=== PATIENT | female | born 1955 | race Caucasian/White ===

== ENCOUNTER 2019-04-01 18:50 | Inpatient (IN) | payer MEDICARE, OTHER ==
[2019-04-01 19:32] LABS: BASOPHILS % (AUTO) 0.3 %; EOSINOPHILS % (AUTO) 0.1 %; HGB - HEMOGLOBIN 15.2 g/dL (12.0-16.0); LYMPHOCYTES # (AUTO) 1.1 10^3/uL (1.5-3.5); LYMPHOCYTES % (AUTO) 8.9 %; MEAN CORPUSCULAR HEMOGLOBIN 32.3 pg (27.0-31.0); MEAN CORPUSCULAR HGB CONC 34.3 g/dL (32.0-36.0); MEAN CORPUSCULAR VOLUME 94.1 fL (81.0-99.0); MONOCYTES % (AUTO) 8.5 %; NEUTROPHILS # (AUTO) 9.8 10^3/uL (1.5-6.6); NEUTROPHILS % (AUTO) 81.5 %; PLT - PLATELET COUNT 244 10^3/uL (130-450); RED BLOOD COUNT 4.71 10^6/uL (4.20-5.40)
[2019-04-01] MEDS ORDERED: cefTRIAXone 1 GM VIAL IVP STA (19:40)
[2019-04-01 19:41] LABS: BILIRUBIN,URINE NEGATIVE (NEGATIVE); GLUCOSE, URINE (UA) NEGATIVE (NEGATIVE); KETONES,URINE (UA) TRACE mg/dL (NEGATIVE); LEUKOCYTE ESTERASE, URINE SMALL (NEGATIVE); NITRITE,URINE POSITIVE (NEGATIVE); OCCULT BLOOD,URINE NEGATIVE (NEGATIVE); PH,URINE 5.5 PH (5.0-7.5); PROTEIN,URINE 100 mg/dL (NEGATIVE); UROBILINOGEN,URINE 4 E.U./dL (NORMAL)
[2019-04-01 19:42] LABS: ALBUMIN 3.8 g/dL (3.2-5.5); ALBUMIN/GLOBULIN RATIO 0.8 (1.0-2.2); BILIRUBIN,TOTAL 0.9 mg/dL (0.2-1.0); CALCIUM 9.6 mg/dL (8.5-10.3); TOTAL PROTEIN 8.5 g/dL (6.7-8.2)
--- NOTE | 2019-04-01 19:42 | ED Physician Documentation ---
History of Present Illness - Stated complaint Stated Complaint: LETHARGIC/FEVER/UNBALANCED - Chief complaint Chief Complaint: Fever - History obtained from History obtained from: Patient - History of Present Illness Timing: Other (63-year-old woman with history of multiple sclerosis presents with 2 days of fatigue and fever. She has had a couple of UTIs over the last couple of months and does have a history of obstructive renal colic. She does not complain of any back pain. She is had mild right upper extremity pain for 2 days and chronic left hip pain. No cough, shortness of breath, or sore throat.) Review of Systems Ten Systems: 10 systems reviewed and negative Constitutional: reports: Fever, Chills, Fatigue Throat: denies: Sore throat Cardiac: denies: Chest pain / pressure, Palpitations Respiratory: denies: Dyspnea, Cough GI: denies: Abdominal Pain, Nausea, Vomiting : denies: Dysuria PD PAST MEDICAL HISTORY - Past Medical History Past Medical History: Yes Neuro: Multiple sclerosis Endocrine/Autoimmune: Type 2 diabetes - Allergies Allergies/Adverse Reactions: Allergies Allergy/AdvReac Type Severity Reaction Status Date / Time Sulfa (Sulfonamide Allergy Hives Verified 04/01/19 19:07 Antibiotics) acetaminophen [From Vicodin] AdvReac Mild Anxiety Verified 04/01/19 19:08 hydrocodone [From Vicodin] AdvReac Mild Anxiety Verified 04/01/19 19:08 - Social History Does the pt smoke?: No Smoking Status: Never smoker Does the pt drink ETOH?: No Does the pt have substance abuse?: No - Immunizations Immunizations are current?: Yes - POLST Patient has POLST: No PD ED PE NORMAL - Vitals Vital signs reviewed: Yes - General General: Alert and oriented X 3, Other (She has the classic smell of a UTI about her.) - HEENT HEENT: PERRL, EOMI - Neck Neck: Supple, no meningeal sign, No bony TTP - Cardiac Cardiac: RRR, No murmur - Respiratory Respiratory: No respiratory distress, Clear bilaterally - Abdomen Abdomen: Normal bowel sounds, Soft, Non tender - Back Back: No CVA TTP, No spinal TTP - Derm Derm: Normal color, Warm and dry - Extremities Extremities: No edema, No calf tenderness / cord - Neuro Neuro: Alert and oriented X 3, Normal speech - Psych Psych: Normal mood, Normal affect Results - Vitals Vitals: Vital Signs - 24 hr 04/01/19 04/01/19 04/01/19 18:59 20:03 20:31 Temperature 39.2 C H Heart Rate 102 H 80 90 Respiratory 20 14 14 Rate Blood Pressure 160/82 H 118/68 120/70 O2 Saturation 96 92 98 Oxygen O2 Source Room air - Labs Labs: Laboratory Tests 04/01/19 04/01/19 04/01/19 19:01 19:18 19:18 WBC 12.0 H RBC 4.71 Hgb 15.2 Hct 44.3 MCV 94.1 MCH 32.3 H MCHC 34.3 RDW 13.0 Plt Count 244 MPV 9.0 Neut # (Auto) 9.8 H Lymph # (Auto) 1.1 L [place] # (Auto) 1.0 Eos # (Auto) 0.0 Baso # (Auto) 0.0 Absolute Nucleated RBC 0.00 Nucleated RBC % 0.0 Sodium 133 L Potassium 4.7 Chloride 95 L Carbon Dioxide 25 Anion Gap 13.0 BUN 25 H Creatinine 1.0 Estimated GFR (MDRD) 56 L Glucose 206 H POC Whole Bld Glucose 216 H Lactic Acid Calcium 9.6 Total Bilirubin 0.9 AST 28 ALT 28 Alkaline Phosphatase 54 Total Protein 8.5 H Albumin 3.8 Globulin 4.7 H Albumin/Globulin Ratio 0.8 L Lipase 20 L Urine Color Urine Clarity Urine pH Ur Specific [place] Urine Protein Urine Glucose (UA) Urine Ketones Urine Occult Blood Urine Nitrite Urine Bilirubin Urine Urobilinogen Ur Leukocyte Esterase Urine RBC Urine WBC Ur Squamous Epith Cells Urine Bacteria Ur Microscopic Review Urine Culture Comments 04/01/19 04/01/19 19:22 19:30 WBC RBC Hgb Hct MCV MCH MCHC RDW Plt Count MPV Neut # (Auto) Lymph # (Auto) [place] # (Auto) Eos # (Auto) Baso # (Auto) Absolute Nucleated RBC Nucleated RBC % Sodium Potassium Chloride Carbon Dioxide Anion Gap BUN Creatinine Estimated GFR (MDRD) Glucose POC Whole Bld Glucose Lactic Acid 2.1 Calcium Total Bilirubin AST ALT Alkaline Phosphatase Total Protein Albumin Globulin Albumin/Globulin Ratio Lipase Urine Color YELLOW Urine Clarity HAZY Urine pH 5.5 Ur Specific [place] 1.025 Urine Protein 100 H Urine Glucose (UA) NEGATIVE Urine Ketones TRACE Urine Occult Blood NEGATIVE Urine Nitrite POSITIVE H Urine Bilirubin NEGATIVE Urine Urobilinogen 4 H Ur Leukocyte Esterase SMALL H Urine RBC None Seen Urine WBC 6-10 H Ur Squamous Epith Cells FEW Squamous Urine Bacteria Many H Ur Microscopic Review INDICATED Urine Culture Comments INDICATED - Rads (name of study) CT KUB Radiology: EMP read contemporaneously (Multiple scars in left kidney, left midpole 6 mm renal calculus versus calcification. No obstructing stones or evidence of obstruction. She does have gas in the bladder. Fat-containing right inguinal hernia. Minimal free fluid in the posterior cul-de-sac, fatty liver.) PD MEDICAL DECISION MAKING - ED course ED course: 63-year-old woman with multiple sclerosis presents with fever and fatigue and being off balance. She was tachycardic and febrile on arrival. She smells of UTI but her Examination and history was otherwise without signs or symptoms of other infections. Given the history of renal colic she was sent for CT. 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 Confirmed with the patient that she does not self cath. She was administered Rocephin and gent after blood and urine cultures. Spoke with Dr. Butler for admission at 8:49 PM. Departure - Departure Disposition: 01 Home, Self Care Clinical Impression: Emphysematous cystitis, Multiple sclerosis, Septicemia Condition: Serious
[2019-04-01 19:44] LABS: CLARITY,URINE HAZY (CLEAR)
[2019-04-01 19:50] LABS: RBC,URINE None Seen /HPF (0-5)
[2019-04-01 19:51] LABS: BACTERIA,URINE Many /HPF (None Seen); SQUAMOUS EPITHELIAL CELL,UR FEW Squamous (<= Few)
[2019-04-01] MEDS ORDERED: GENTAMICIN IV STA (20:03)
[2019-04-01] MEDS ORDERED: SODIUM CHLORIDE 0.9% IV STA (20:03)
[2019-04-01] MEDS ORDERED: SODIUM CHLORIDE 0.9% 1,000 ML IV ONE (20:05)
--- NOTE | 2019-04-01 20:34 | CT Report ---
Reason: UTI, poss ureteral stone Procedure Date: 04/01/2019 Accession Number: [id number] / [id number] Procedure: CT - Abdomen/Pelvis WO CPT Code: FULL RESULT: EXAM: CT ABDOMEN AND PELVIS (CT KUB) EXAM DATE: 04/01/2019 07:56 PM. CLINICAL HISTORY: Urinary tract infection, possible ureteral stone. COMPARISONS: None. TECHNIQUE: Routine axial helical CT imaging was performed through the abdomen and pelvis without IV contrast. Reconstructions: Coronal and sagittal. In accordance with CT protocol optimization, one or more of the following dose reduction techniques were utilized for this exam: automated exposure control, adjustment of mA and/or KV based on patient size, or use of iterative reconstructive technique. FINDINGS: Lung Bases: Mild bibasilar atelectasis or scarring. Liver: Fatty liver. Gallbladder: Status post cholecystectomy. Bile ducts: No bile duct dilatation. Pancreas: Unremarkable. Spleen: Unremarkable. Adrenals: Unremarkable. Kidneys: Left lateral exophytic renal cyst measuring 3.5 cm. Multiple scars left kidney. Left lateral parenchymal calcification. Left mid pole 6 mm calcification, could represent renal calculus versus parenchymal calcification. Heterogeneous hyperdensities seen at the upper pole right kidney extending into Morison's pouch. Small right parenchymal calcification. No hydronephrosis. No hydroureter or ureteral calculi. No perinephric stranding. Bowel: No acute bowel findings are seen. The appendix is not definitely seen. No free air. Minimal free fluid seen in the posterior cul-de-sac. Pelvis: There is a moderate amount of gas in the bladder. No definite bladder wall thickening. No adjacent stranding. Fat-containing right inguinal hernia with a neck of 2 cm. Vasculature: No acute findings. Bones: No acute bone findings. IMPRESSION: 1. Multiple scars in the left kidney. A left midpole 6 mm renal calculus versus parenchymal calcification. No hydronephrosis or hydroureter. No ureteral calculi. No perinephric stranding. Moderate amount of gas in the bladder. Has the patient recently been catheterized?. No definite bladder wall thickening or adjacent stranding. 2. Fat-containing right inguinal hernia. 3. Minimal free fluid in the posterior cul-de-sac. 4. Fatty liver. 5. See above. RADIA
[2019-04-01] MEDS ORDERED: SODIUM CHLORIDE FLUSH 0.9% 10 ML SYRINGE IVP PRN (20:48)
[2019-04-01] MEDS: HEPARIN 5,000 UNIT/ML VIAL SUBQ SCH (21:48)
[2019-04-01] MEDS: ACETAMINOPHEN 325 MG TABLET PO PRN (21:50)
[2019-04-01] MEDS: LACTATED RINGERS 1,000 ML IV SCH (21:53)
--- NOTE | 2019-04-01 21:53 | HISTORY & PHYSICAL EXAMINATION ---
Chief Complaint - Chief Complaint Chief Complaint: Fever History of Present Illness - Admitted From Admitted From:: Home - History Obtained From Records Reviewed: Yes History obtained from: Patient, Family - History of Present Illness HPI Comment/Other: This is a very pleasant 63 year old female with a past medical history significant for multiple sclerosis, hypertension, diabetes, and JULIA who presents from home after she was found to have a fever today. The patient reports feeling very fatigued these past two days so her daughter measured her temperature as the last time she was this fatigue, she had a urinary tract infection. Her temperature was found to be >102 Fahrenheit and so she seeked medical attention. She reports that she does not feel febrile and denies chills, dysuria, urgency, frequency, cough, nausea, vomiting, and diarrhea. She reports a history of UTI's in the past with most recent being earlier this month for which she was treated with 5 day course of an antibiotic which she cannot recall. She has had poor oral intake over the past few days. She also reports feeling weak and that her balance is a little off over this period of time. Today she got a cane to help her ambulate when normally she ambulates on her own. She reports a headache at this time. She also complains of numbness which is chronic secondary to her MS. In the ER, she was found to be febrile, tachycardic but with a normal blood pressure. Her labs were signficant for a white count of 12 with a left shift, sodium of 133, and urinalysis revealed pyuria, nitritis, leuk esterase, and bacteria. She will be admitted for further management. I did speak with the patient regarding goals of care. She does not have a POLST form with her but she states she would want CPR if necessary. History - Past Medical History Cardiovascular: reports: Hypertension Respiratory: reports: Sleep apnea, CPAP use Neuro: reports: Multiple sclerosis Endocrine/Autoimmune: reports: Type 2 diabetes : reports: Kidney stones MRSA Hx?: No - Past Surgical History /AUTHOR: reports: Other (Nephrostomy tubes) - Family & Social History Family History Comment/Other: She reports a family history of diabetes and hypertension. She has a cousin with multiple sclerosis. Her daughter was recently diagnosed with cancer. Living arrangement: At home Living Situation: With family Social History Notes: She lives in [place] but is spending time with her daughter here on [facility] after she was recently diagnosed with cancer. She does not smoke, drink alcohol or use illict drugs. - Substance History Use: Uses substance without health or social issues: NONE - POLST Patient has POLST: No POLST Status: Full Code Meds/Allgy - Home Medications Home Medications: Ambulatory Orders Medication Instructions Recorded Confirmed Insulin Glargine [Lantus Solostar] unit 04/01/19 Insulin Lispro [Humalog] 04/01/19 Metoprolol Tartrate 04/01/19 glyBURIDE [Glyburide] 04/01/19 metFORMIN [Glucophage] 04/01/19 traMADol [Ultram] 04/01/19 - Allergies Allergies/Adverse Reactions: Allergies Allergy/AdvReac Type Severity Reaction Status Date / Time Sulfa (Sulfonamide Allergy Hives Verified 04/01/19 19:07 Antibiotics) hydrocodone [From Vicodin] AdvReac Mild Anxiety Verified 04/01/19 19:08 Review of Systems - Constitutional Constitutional: reports: Fatigue, Weakness, Poor appetite. denies: Fever, Chills - Cardiovascular Cariovascular: denies: Chest pain, Lightheadedness, Exertional dyspnea, Decr. exercise tolerance - Respiratory Respiratory: denies: Cough, SOB at rest, SOB with exertion - Gastrointestinal Gastrointestinal: denies: Abdominal pain, Constipation, Diarrhea, Nausea, Vomiting - Genitourinary Genitourinary: denies: Dysuria, Frequency, Urgency - Neurological Neurological: reports: General weakness, Headache, Numbness. denies: Focal weakness - All Other Systems All Other Systems: reports: Reviewed and negative Prior Level of Functionality: Independent with ADL's. Exam - Vital Signs Reviewed Vital Signs: Yes Vital Signs: Vital Signs x48h Temp Pulse Pulse Resp BP BP Pulse Ox 04/01/19 21:19 37.0 C 84 20 129/71 93 04/01/19 20:31 90 14 120/70 98 04/01/19 20:03 80 14 118/68 92 04/01/19 18:59 39.2 C H 102 H 20 160/82 H 96 - Physical Exam General Appearance: positive: No acute distress, Alert Eyes Bilateral: positive: Normal inspection ENT: positive: Dry mucous membranes. negative: No signs of dehydration Neck: positive: Nml inspection Respiratory: positive: No respiratory distress. negative: Wheezes, Rales, Rhonchi Cardiovascular: positive: Regular rate & rhythm, No murmur. negative: Tachycardia, Bradycardia, Systolic murmur Abdomen: positive: Non-tender. negative: Tenderness, Guarding, Rebound Skin: positive: Color nml, No rash, Warm, Dry Neurologic/Psychiatric: positive: Oriented x3, Motor nml, Sensation nml, Other (Finger to nose test is abnormal in the left upper extremity which is baseline per patient. Finger to nose test normal in right upper extremity.). negative: Disoriented to person, Disoriented to place, Disoriented to time Sepsis Event Note (H) - Evaluation Current Stage of Sepsis: Sepsis Possible source of Sepsis: positive: Genitourinary - Sepsis Criteria Sepsis Criteria: Recorded Temperature greater than 38.3C or Less than 36C, Recorded Heart Rate greater than 90 bpm, WBC count greater than 12,000 or less than 4000 Conclusion/Plan - Problem List (1) Sepsis secondary to UTI Conclusion/Plan: Presented with fevers, tachycardia, and leukocytosis. Blood pressure is stable and no lactic acidosis or renal dysfunction. Urinalysis consistent with infection. No other obvious source of infection. - Cefepime IV - IV Hydration - Blood and urine cultures (2) Emphysematous cystitis Conclusion/Plan: Her urinalysis is consistent with infection and CT of the abdomen/pelvis concerning for gas in the bladder in a patient who has not had recent c atheterization. Has had prior UTI's with most recent being earlier this month so there is concern for resistant organsims. - Cefepime IV for broad spectrum coverage given her history of prior UTI and concern for resistance - Follow up urine culture (3) Multiple sclerosis Conclusion/Plan: She has a history of multiple sclerosis for which she takes interferon. She has numbness from head to toe at baseline. Complaining of decreased balance over last two days which I suspect is secondary to her UTI rather than exacerbation of her MS. - Resume Interferon on outpatient basis - PT/OT - If balance issues persist despite resolution of UTI then will obtain CT of the head (4) Hyponatremia Conclusion/Plan: Likely hypovolemic hyponatremia secondary to poor oral intake. Sodium 133 on admission. - Should improve with IV hydration - Monitor BMP (5) Type 2 diabetes mellitus with insulin therapy Conclusion/Plan: She has history of diabetes for which she takes metformin, glyburide, lantus and humalog. Reports last A1c is 11%. Blood glucose <200. - Continue Lantus - Start Novolog with meals - CC diet (6) Hypertension Conclusion/Plan: She reports a history of hypertension for which she takes Metoprolol. Currently normotensive. - Will home Metoprolol in setting of sepsis (7) Chronic headaches Conclusion/Plan: She reports a history of chronic headaches for which she takes Metoprolol and Tramadol. Currently complaining of a headache. - Hold Metoprolol due to sepsis - Resume Tramadol - Start Tylenol PRN - Lab Results Fish Bones: 04/01/19 19:18 04/01/19 19:18 - Diagnostic Imaging Results Diagnostic Imaging Results: positive: Final report reviewed Core Measures - Anticipated LOS I expect patient to be DC'd or transferred within 96 hours.: Yes - Issues Hospital Issues and Management Plan: Sepsis 2/2 UTI requiring IV antibiotics. - DVT/VTE - Prophylaxis VTE/DVT Device ordered at admit?: Yes VTE/DVT Prophylaxis med ordered at admit?: Yes
[2019-04-01] MEDS: traMADol 50 MG TABLET PO PRN (23:49)
[2019-04-02] MEDS: SODIUM CHLORIDE FLUSH 0.9% 10 ML SYRINGE IVP SCH ×3 (04:25→16:38)
[2019-04-02 05:35] LABS: BASOPHILS % (AUTO) 0.2 %; EOSINOPHILS % (AUTO) 0.3 %; HGB - HEMOGLOBIN 12.9 g/dL (12.0-16.0); LYMPHOCYTES % (AUTO) 11.1 %; MEAN CORPUSCULAR HEMOGLOBIN 31.3 pg (27.0-31.0); MEAN CORPUSCULAR HGB CONC 33.2 g/dL (32.0-36.0); MEAN CORPUSCULAR VOLUME 94.2 fL (81.0-99.0); MEAN PLATELET VOLUME 9.2 fL (7.9-10.8); MONOCYTES # (AUTO) 0.9 10^3/uL (0.0-1.0); MONOCYTES % (AUTO) 9.7 %; NEUTROPHILS # (AUTO) 6.8 10^3/uL (1.5-6.6); PLT - PLATELET COUNT 196 10^3/uL (130-450); RED BLOOD COUNT 4.12 10^6/uL (4.20-5.40); RED CELL DISTRIBUTION WIDTH 13.2 % (12.0-15.0); WHITE BLOOD COUNT 8.8 x10^3/uL (4.8-10.8)
[2019-04-02 05:49] LABS: CALCIUM 8.7 mg/dL (8.5-10.3); CREATININE 0.9 mg/dL (0.4-1.0); MAGNESIUM 1.8 mg/dL (1.7-2.8); PHOSPHORUS 3.9 mg/dL (2.5-4.6)
[2019-04-02] MEDS: ACETAMINOPHEN 325 MG TABLET PO PRN ×3 (05:58→22:23)
[2019-04-02] MEDS: LACTATED RINGERS 1,000 ML IV SCH ×2 (08:09→18:28)
[2019-04-02] MEDS: CEFEPIME 2 GM in SODIUM CHLORIDE 0.9% MINIBAG 100 ML IV SCH ×2 (08:10→22:10)
[2019-04-02] MEDS: INSULIN GLARGINE 300 UNIT/3 ML PEN SUBQ SCH (08:17)
[2019-04-02] MEDS: INSULIN ASPART 300 UNIT/3 ML PEN SUBQ SCH ×7 (08:19→22:09)
[2019-04-02] MEDS: HEPARIN 5,000 UNIT/ML VIAL SUBQ SCH ×2 (08:23→22:08)
[2019-04-02] MEDS: POLYETHYLENE GLYCOL 3350 17 GM PACKET PO SCH (08:30)
[2019-04-02] MEDS ORDERED: cefTRIAXone 1 GM in SODIUM CHLORIDE 0.9% MINIBAG 100 ML IV SCH (09:00)
[2019-04-02] MEDS: traMADol 50 MG TABLET PO PRN (11:49)
--- NOTE | 2019-04-02 13:46 | PROVIDER PROGRESS NOTE ---
Assessment/Plan - Problem List (1) Sepsis secondary to UTI Assessment/Plan: Tachycardia is slowly improving, WBC has improved but she still had a fever this morning. (Tachy could also be from holding her Metoprolol, due to soft BPs) Continue iv hydration and treating the UTI. Await urine culture results, which is already growing a gram neg Robinson. (2) Emphysematous cystitis Assessment/Plan: Continue empiric iv Cefepime, which was chosen over iv ceftriaxone, since she has had multiple previous UTIs and may have resistant bacteria. I discussed the details of her last recent treatment for UTI and whether she had a Langston: No Langston and No receent hospitalization elsewhere. Will obtain a consult with General Surgery regarding air in urinary bladder, due to concern for perforation or bowel to bladder fistula, given the abdominal distension. (3) Abdominal distension, gaseous Assessment/Plan: This is of concern, even asymptomatic, since bowel gas could be related to the bladder air, if there is a communication. She does not have a tense abdomen or appear in distress. She also says this is the normal size of her abdomen. Will request surgery consult. I informed the patient, and daughter at bedside, with her 4 children, of the plan. (4) Multiple sclerosis Assessment/Plan: PT was ordered. (5) Type 2 diabetes mellitus with insulin therapy Assessment/Plan: Continue cc diet, Insulin and ss coverage. Her oral meds are on hild, for ease of managemen. (6) Hyponatremia Assessment/Plan: Resolved. - Current Meds Current Meds: Current Medications Generic Name Dose Route Start Last Admin Trade Name Freq PRN Reason Stop Dose Admin Acetaminophen 650 mg 04/01/19 20:48 04/02/19 05:58 Tylenol PO 650 mg Q6HR PRN Administration Pain 1 to 4 Heparin Sodium (Porcine) 5,000 unit 04/01/19 21:00 04/02/19 08:23 SUBQ 5,000 unit BID DANIELA Administration Lactated Ringer's 1,000 mls @ 100 mls/hr 04/01/19 21:00 04/02/19 08:09 Lr IV 100 mls/hr .Q10H DANIELA Administration Cefepime HCl 2 gm/ Sodium 100 mls @ 200 mls/hr 04/02/19 09:00 04/02/19 09:11 Chloride IV Infused BID DANIELA Infusion Insulin Aspart 16 unit 04/02/19 08:00 04/02/19 11:50 Novolog SUBQ 16 unit TIDWM [facility] Administration Protocol Insulin Aspart 1 - 5 unit 04/02/19 08:00 04/02/19 11:50 Novolog SUBQ 2 unit 0800,1200,1700,2100 DANIELA Administration Protocol Insulin Glargine 72 unit 04/02/19 08:00 04/02/19 08:17 Lantus Solostar SUBQ 72 unit QDBREAKFAST DANIELA Administration Polyethylene Glycol 17 gm 04/02/19 09:00 04/02/19 08:30 Miralax PO Not Given DAILY DANIELA Sodium Chloride 10 ml 04/02/19 01:00 04/02/19 08:29 Normal Saline Flush 0.9% IVP 10 ml 0100,0900,1700 DANIELA Administration Tramadol HCl 50 mg 04/01/19 22:40 04/02/19 11:49 Ultram PO 50 mg Q6HR PRN Administration PAIN - Lab Result Fish Bone Diagrams: 04/02/19 05:10 04/02/19 05:10 Subjective - Subjective Patient Reports: Feeling Better, No Complaints Objective Vital Signs: Vital Signs - 24 hr 04/01/19 04/01/19 04/01/19 18:59 20:03 20:31 Temperature 39.2 C H Heart Rate 102 H 80 90 Heart Rate [ Activity] Heart Rate [ Monitoring electrodes] Respiratory 20 14 14 Rate Respiratory Rate [With Activity] Blood Pressure 160/82 H 118/68 120/70 Blood Pressure [Activity] Blood Pressure [Right Brachial artery] O2 Saturation 96 92 98 O2 Saturation [ With Activity] 04/01/19 04/01/19 04/02/19 21:19 23:38 05:48 Temperature 37.0 C 37.3 C 38.7 C H Heart Rate Heart Rate [ Activity] Heart Rate [ 84 83 99 Monitoring electrodes] Respiratory 20 20 16 Rate Respiratory Rate [With Activity] Blood Pressure Blood Pressure [Activity] Blood Pressure 129/71 120/70 145/78 H [Right Brachial artery] O2 Saturation 93 91 L 91 L O2 Saturation [ With Activity] 04/02/19 04/02/19 04/02/19 06:00 06:16 07:44 Temperature 38.7 C H 37.3 C Heart Rate 99 Heart Rate [ Activity] Heart Rate [ 82 Monitoring electrodes] Respiratory 16 18 Rate Respiratory Rate [With Activity] Blood Pressure Blood Pressure [Activity] Blood Pressure 131/69 H [Right Brachial artery] O2 Saturation 93 93 96 O2 Saturation [ With Activity] 04/02/19 04/02/19 11:33 11:36 Temperature 37.5 C Heart Rate Heart Rate [ 93 Activity] Heart Rate [ 95 Monitoring electrodes] Respiratory 16 Rate Respiratory 12 Rate [With Activity] Blood Pressure Blood Pressure 141/80 H [Activity] Blood Pressure 138/76 H [Right Brachial artery] O2 Saturation 96 O2 Saturation [ 92 With Activity] Oxygen O2 Source [With Activity] Room air O2 Source Room air I&O (Last 24 Hrs): Intake and Output Totals x24h 03/31/19 04/01/19 04/02/19 23:59 23:59 23:59 Intake Total 168.75 2675 Output Total 500 1950 Balance -331.25 725 General: Alert HEENT: Mucous membr. moist/pink Neck: Supple Neuro: Non Focal Cardiovascular: Regular rate Respiratory: No respiratory distress Abdomen: Other (Distended moderately and hypertympanic, not tender, dimisnished bowel sounds) Extremities: No edema - Results Results: Laboratory Results WBC 8.8 x10^3/uL (4.8-10.8) 04/02/19 05:10 RBC 4.12 10^6/uL (4.20-5.40) L 04/02/19 05:10 Hgb 12.9 g/dL (12.0-16.0) 04/02/19 05:10 Hct 38.8 % (37.0-47.0) 04/02/19 05:10 MCV 94.2 fL (81.0-99.0) 04/02/19 05:10 MCH 31.3 pg (27.0-31.0) H 04/02/19 05:10 MCHC 33.2 g/dL (32.0-36.0) 04/02/19 05:10 RDW 13.2 % (12.0-15.0) 04/02/19 05:10 Plt Count 196 10^3/uL (130-450) 04/02/19 05:10 MPV 9.2 fL (7.9-10.8) 04/02/19 05:10 Neut # (Auto) 6.8 10^3/uL (1.5-6.6) H 04/02/19 05:10 Lymph # (Auto) 1.0 10^3/uL (1.5-3.5) L 04/02/19 05:10 [place] # (Auto) 0.9 10^3/uL (0.0-1.0) 04/02/19 05:10 Eos # (Auto) 0.0 10^3/uL (0.0-0.7) 04/02/19 05:10 Baso # (Auto) 0.0 10^3/uL (0.0-0.1) 04/02/19 05:10 Absolute Nucleated RBC 0.00 x10^3/uL 04/02/19 05:10 Nucleated RBC % 0.0 /100WBC 04/02/19 05:10 Sodium 137 mmol/L (135-145) 04/02/19 05:10 Potassium 4.3 mmol/L (3.5-5.0) 04/02/19 05:10 Chloride 99 mmol/L (101-111) L 04/02/19 05:10 Carbon Dioxide 27 mmol/L (21-32) 04/02/19 05:10 Anion Gap 11.0 (6-13) 04/02/19 05:10 BUN 21 mg/dL (6-20) H 04/02/19 05:10 Creatinine 0.9 mg/dL (0.4-1.0) 04/02/19 05:10 Estimated GFR (MDRD) 63 (>89) L 04/02/19 05:10 Glucose 165 mg/dL (70-100) H 04/02/19 05:10 POC Whole Bld Glucose 217 mg/dL (70 - 100) H 04/02/19 11:29 Lactic Acid 2.1 mmol/L (0.5-2.2) 04/01/19 19:22 Calcium 8.7 mg/dL (8.5-10.3) 04/02/19 05:10 Phosphorus 3.9 mg/dL (2.5-4.6) 04/02/19 05:10 Magnesium 1.8 mg/dL (1.7-2.8) 04/02/19 05:10 Total Bilirubin 0.9 mg/dL (0.2-1.0) 04/01/19 19:18 AST 28 IU/L (10-42) 04/01/19 19:18 ALT 28 IU/L (10-60) 04/01/19 19:18 Alkaline Phosphatase 54 IU/L (42-121) 04/01/19 19:18 Total Protein 8.5 g/dL (6.7-8.2) H 04/01/19 19:18 Albumin 3.8 g/dL (3.2-5.5) 04/01/19 19:18 Globulin 4.7 g/dL (2.1-4.2) H 04/01/19 19:18 Albumin/Globulin Ratio 0.8 (1.0-2.2) L 04/01/19 19:18 Lipase 20 U/L (22-51) L 04/01/19 19:18 Urine Color YELLOW 04/01/19 19:30 Urine Clarity HAZY (CLEAR) 04/01/19 19:30 Urine pH 5.5 PH (5.0-7.5) 04/01/19 19:30 Ur Specific [place] 1.025 (1.002-1.030) 04/01/19 19:30 Urine Protein 100 mg/dL (NEGATIVE) H 04/01/19 19:30 Urine Glucose (UA) NEGATIVE mg/dL (NEGATIVE) 04/01/19 19:30 Urine Ketones TRACE mg/dL (NEGATIVE) 04/01/19 19:30 Urine Occult Blood NEGATIVE (NEGATIVE) 04/01/19 19:30 Urine Nitrite POSITIVE (NEGATIVE) H 04/01/19 19:30 Urine Bilirubin NEGATIVE (NEGATIVE) 04/01/19 19:30 Urine Urobilinogen 4 E.U./dL (NORMAL) H 04/01/19 19:30 Ur Leukocyte Esterase SMALL (NEGATIVE) H 04/01/19 19:30 Urine RBC None Seen /HPF (0-5) 04/01/19 19:30 Urine WBC 6-10 /HPF (0-5) H 04/01/19 19:30 Ur Squamous Epith Cells FEW Squamous (<= Few) 04/01/19 19:30 Urine Bacteria Many /HPF (None Seen) H 04/01/19 19:30 Ur Microscopic Review INDICATED 04/01/19 19:30 Urine Culture Comments INDICATED 04/01/19 19:30 Sepsis Event Note (H) - Evaluation Current Stage of Sepsis: Sepsis Possible source of Sepsis: positive: Genitourinary - Sepsis Criteria Sepsis Criteria: Recorded Temperature greater than 38.3C or Less than 36C, Recorded Heart Rate greater than 90 bpm, WBC count greater than 12,000 or less than 4000
--- NOTE | 2019-04-02 17:40 | CONSULTATION NOTE ---
Referring Provider Name of Referring Provider:: Michelle Maldonado Consult Date: 04/02/19 Chief Complaint - Chief Complaint Chief Complaint: Emphysematous cystitis History of Present Illness - Admitted From Admitted From:: Emergency Department - History Obtained From Records Reviewed: Providers notes History obtained from: Patient and providers Exam Limitations: None - History of Present Illness HPI Comment/Other: Laverne is a very pleasant 63 year old lady visiting her daughter from [place] who was admitted last evening with fever and weakness. She suffers from multiple medical problems and has had multiple UTIs in the past. She was noted to have a leukocystosis with a left shift and air in the bladder on CT. I have been asked to see her in regard to the possibility of colovesicle fistula as a cause for emphysematous cystitis. Laverne denies any abdominal pain or diarrhea. She denies any history of diverticulitis. She reports her abdomen looks and feels "normal". She hasn't seen any blood in her stool. 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 She has a cousin with multiple sclerosis. Her daughter was recently diagnosed with cancer. Living arrangement: At home Living Situation: With family Social History Notes: She lives in [place] but is spending time with her daughter here on [facility] after she was recently diagnosed with cancer. She does not smoke, drink alcohol or use illict drugs. - Substance History Use: Uses substance without health or social issues: NONE - POLST Patient has POLST: No POLST Status: Full Code Meds/Allgy - Home Medications Home Medications: Ambulatory Orders Medication Instructions Recorded Confirmed Insulin Glargine [Lantus Solostar] 72 unit SUBQ DAILY 04/01/19 04/02/19 Insulin Lispro [Humalog] 16 unit SUBQ ACHS 04/01/19 04/02/19 Metoprolol Tartrate 04/01/19 metFORMIN [Glucophage] 04/01/19 traMADol [Ultram] 50 mg PO Q6H PRN 04/01/19 04/02/19 - Allergies Allergies/Adverse Reactions: Allergies Allergy/AdvReac Type Severity Reaction Status Date / Time Sulfa (Sulfonamide Allergy Hives Verified 04/01/19 19:07 Antibiotics) hydrocodone [From Vicodin] AdvReac Mild Anxiety Verified 04/01/19 19:08 Review of Systems - Constitutional Constitutional: reports: Fatigue, Fever, Chills, Malaise, Weakness, Poor appetite, Other (All improved since admission) - Gastrointestinal Gastrointestinal: reports: Nausea. denies: Abdominal pain, Abdominal diste ntion, Constipation, Diarrhea, Change in bowel habits, Rectal bleeding, Black stools, Bloody stools, Vomiting, Poor appetite - Genitourinary Genitourinary: denies: Dysuria, Frequency, Urgency Exam - Vital Signs Reviewed Vital Signs: Yes Vital Signs: Vital Signs x48h Temp Pulse Pulse Resp Resp BP BP 04/02/19 15:45 39.1 C H 97 18 141/66 H 04/02/19 11:36 93 12 141/80 H 04/02/19 11:33 37.5 C 95 16 138/76 H Pulse Ox Pulse Ox 04/02/19 15:45 93 04/02/19 11:36 92 04/02/19 11:33 96 - Physical Exam General Appearance: positive: No acute distress, Alert Eyes Bilateral: positive: Normal inspection, PERRL, EOMI ENT: positive: ENT inspection nml, Pharynx nml, No signs of dehydration Neck: positive: Nml inspection, Thyroid nml, No JVD, Trachea midline. negative: Thyromegaly Respiratory: positive: Chest non-tender, No respiratory distress, Breath sounds nml Cardiovascular: positive: Regular rate & rhythm, No murmur Peripheral Pulses: positive: 1+ Abdomen: positive: Non-tender, No organomegaly, Nml bowel sounds, No distention Skin: positive: Color nml, No rash Extremities: positive: Non-tender Neurologic/Psychiatric: positive: Oriented x3, CN's nml (2-12) Conclusion/Plan - Diagnosis Diagnosis: Emphysematous cystits in the setting of a pleasant lady with multiple other medical problems. - Plan Plan: Other than the presence of emphysematous cystitis, there is no supporting evidence for colovesicle fistula. There is specifically no abdominal tenderness or history of diverticulitis or diverticular abscess. Laverne is both diabetic and relatively immunosuppressed due to MS. She is at increased for gas forming organisms in association with bladder infection. I agree with all excellent treatment she has received. I appreciate the opportunity to participate in her care. Please call me if I can be of any assistance. - Lab Results Fish Bones: 04/02/19 05:10 04/02/19 05:10 - Diagnostic Imaging Results Diagnostic Imaging Results: positive: Final report reviewed, Read contemporaneously Diagnostic Imaging Results Comments: Final Report PT NAME: LAVERNE NI MR#: [id number] REG ER/ED AGE: 63 CI DT/TM: 04/01/19 PCP: : 1955 ATT: SEX: F ORD: Enmanuel nunez MD EXAM: CT/ABPEWO ([id number]) Reason: UTI, poss ureteral stone Procedure Date: 04/01/2019 Accession Number: [id number] / [id number] Procedure: CT - Abdomen/Pelvis WO CPT Code: FULL RESULT: EXAM: CT ABDOMEN AND PELVIS (CT KUB) EXAM DATE: 04/01/2019 07:56 PM. CLINICAL HISTORY: Urinary tract infection, possible ureteral stone. COMPARISONS: None. TECHNIQUE: Routine axial helical CT imaging was performed through the abdomen and pelvis without IV contrast. Reconstructions: Coronal and sagittal. In accordance with CT protocol optimization, one or more of the following dose reduction techniques were utilized for this exam: automated exposure control, adjustment of mA and/or KV based on patient size, or use of iterative reconstructive technique. FINDINGS: Lung Bases: Mild bibasilar atelectasis or scarring. Liver: Fatty liver. Gallbladder: Status post cholecystectomy. Bile ducts: No bile duct dilatation. Pancreas: Unremarkable. Spleen: Unremarkable. Adrenals: Unremarkable. Kidneys: Left lateral exophytic renal cyst measuring 3.5 cm. Multiple scars left kidney. Left lateral parenchymal calcification. Left mid pole 6 mm calcification, could represent renal calculus versus parenchymal calcification. Heterogeneous hyperdensities seen at the upper pole right kidney extending into Morison's pouch. Small right parenchymal calcification. No hydronephrosis. No hydroureter or ureteral calculi. No perinephric stranding. Bowel: No acute bowel findings are seen. The appendix is not definitely seen. No free air. Minimal free fluid seen in the posterior cul-de-sac. Pelvis: There is a moderate amount of gas in the bladder. No definite bladder wall thickening. No adjacent stranding. Fat-containing right inguinal hernia with a neck of 2 cm. Vasculature: No acute findings. Bones: No acute bone findings. IMPRESSION: 1. Multiple scars in the left kidney. A left midpole 6 mm renal calculus versus parenchymal calcification. No hydronephrosis or hydroureter. No ureteral calculi. No perinephric stranding. Moderate amount of gas in the bladder. Has the patient recently been catheterized?. No definite bladder wall thickening or adjacent stranding. 2. Fat-containing right inguinal hernia. 3. Minimal free fluid in the posterior cul-de-sac. 4. Fatty liver. 5. See above.
[2019-04-02] MEDS: SIMETHICONE CHEW 80 MG TABLET PO SCH ×2 (18:44→22:08)
[2019-04-03] MEDS: SODIUM CHLORIDE FLUSH 0.9% 10 ML SYRINGE IVP SCH ×3 (01:11→16:25)
[2019-04-03] MEDS: LACTATED RINGERS 1,000 ML IV SCH (03:43)
[2019-04-03 05:33] LABS: BASOPHILS % (AUTO) 0.3 %; EOSINOPHILS # (AUTO) 0.1 10^3/uL (0.0-0.7); EOSINOPHILS % (AUTO) 1.1 %; HGB - HEMOGLOBIN 12.5 g/dL (12.0-16.0); LYMPHOCYTES # (AUTO) 1.1 10^3/uL (1.5-3.5); LYMPHOCYTES % (AUTO) 14.1 %; MEAN CORPUSCULAR HEMOGLOBIN 32.2 pg (27.0-31.0); MEAN CORPUSCULAR HGB CONC 33.7 g/dL (32.0-36.0); MEAN CORPUSCULAR VOLUME 95.6 fL (81.0-99.0); MEAN PLATELET VOLUME 9.2 fL (7.9-10.8); MONOCYTES # (AUTO) 0.8 10^3/uL (0.0-1.0); MONOCYTES % (AUTO) 9.7 %; NEUTROPHILS # (AUTO) 5.8 10^3/uL (1.5-6.6); NEUTROPHILS % (AUTO) 73.8 %; PLT - PLATELET COUNT 202 10^3/uL (130-450); RED BLOOD COUNT 3.88 10^6/uL (4.20-5.40); RED CELL DISTRIBUTION WIDTH 12.9 % (12.0-15.0); WHITE BLOOD COUNT 7.9 x10^3/uL (4.8-10.8)
[2019-04-03 05:48] LABS: CALCIUM 8.6 mg/dL (8.5-10.3); CREATININE 0.7 mg/dL (0.4-1.0); PHOSPHORUS 3.7 mg/dL (2.5-4.6)
[2019-04-03] MEDS: SIMETHICONE CHEW 80 MG TABLET PO SCH ×3 (07:46→17:00)
[2019-04-03] MEDS: traMADol 50 MG TABLET PO PRN (07:46)
[2019-04-03] MEDS: CEFEPIME 2 GM in SODIUM CHLORIDE 0.9% MINIBAG 100 ML IV SCH (07:46)
[2019-04-03] MEDS: HEPARIN 5,000 UNIT/ML VIAL SUBQ SCH (08:30)
[2019-04-03] MEDS: INSULIN GLARGINE 300 UNIT/3 ML PEN SUBQ SCH (08:31)
[2019-04-03] MEDS: INSULIN ASPART 300 UNIT/3 ML PEN SUBQ SCH ×6 (08:32→17:01)
[2019-04-03] MEDS: POLYETHYLENE GLYCOL 3350 17 GM PACKET PO SCH (08:34)
[2019-04-03] MEDS ORDERED: DOCUSATE SODIUM 250 MG CAPSULE PO SCH (09:00)
[2019-04-03] MEDS ORDERED: SENNA 8.6 MG TABLET PO SCH (09:00)
[2019-04-03] MEDS ORDERED: traMADol 50 MG TABLET PO PRN (09:19)
[2019-04-03] MEDS ORDERED: LACTATED RINGERS 1,000 ML IV SCH (09:23)
[2019-04-03] MEDS ORDERED: METOPROLOL SUCCINATE 25 MG TABLET PO SCH (09:30)
[2019-04-03] MEDS ORDERED: GABAPENTIN 300 MG CAPSULE PO SCH (10:00)
[2019-04-03] MEDS ORDERED: OXYBUTYNIN 5MG TABLET PO SCH (10:00)
[2019-04-03] MEDS ORDERED: ASPIRIN EC 81 MG TABLET PO SCH (10:00)
[2019-04-03] MEDS ORDERED: ASCORBIC ACID CHEW 500 MG TABLET PO SCH (10:00)
--- NOTE | 2019-04-03 12:03 | Discharge Plan ---
Discharge Plan Problem Reviewed?: Yes Disposition: Home, Self Care Condition: Stable Prescriptions: Levofloxacin [Levaquin] 750 mg PO DAILY #5 tablet Diet: Diabetic Activity Restrictions: Activity as Tolerated Shower Restrictions: No Driving Restrictions: No Instruction Topics: Urinary Tract Infec Ch Health Concerns: Admitted with urinary tract infection and gaseous intestinal distension. Diabetes, frequent urinary infections and multiple sclerosis history. Plan of Treatment: Finish course of antibiotics. Resume all other pre-hospital medications. Care Goals: Stabilized after infection. Assessment: The patient is agreeable with the plan. Additional Instructions or Follow Up instructions: If you have new or worsening symptoms, call your PCP (in [place]) with questions or come to the ER. No Smoking: If you smoke, Please STOP! Call for help.
--- NOTE | 2019-04-03 13:15 | DISCHARGE SUMMARY ---
Discharge Summary Admit Date: 04/01/19 Discharge Date: 04/03/19 Discharging Provider: Dr Michelle Maldonado Condition at Discharge: Good Discharge Disposition: 01 Home, Self Care - DIAGNOSES Admission Diagnoses: (1) Sepsis secondary to UTI (2) Emphysematous cystitis (3) Multiple sclerosis (4) Hyponatremia (5) Type 2 diabetes mellitus with insulin therapy (6) Hypertension (7) Chronic headaches Discharge Diagnoses with Status of Each Condition: See below - HPI History of Present Illness: From the admission H&P of Dr Frederic Kendrick: This is a very pleasant 63 year old female with a past medical history significant for multiple sclerosis, hypertension, diabetes, and JULIA who presents from home after she was found to have a fever today. The patient reports feeling very fatigued these past two days so her daughter measured her temperature as the last time she was this fatigued, she had a urinary tract infection. Her temperature was found to be >102 Fahrenheit and so she sought medical attention. She reports that she does not feel febrile and denied chills, dysuria, urgency, frequency, cough, nausea, vomiting, and diarrhea. She reports a history of UTI's in the past with most recent being earlier this month for which she was treated with 5 day course of an antibiotics, but did not need hospitaliation. She has had poor oral intake over the past few days. She also reported feeling weak and that her balance is a little off over this period of time. Today she got a cane to help her ambulate when normally she ambulates on her own. She reported a hea dache at this time. She also complains of numbness which is chronic secondary to her MS. In the ER, she was found to be febrile, tachycardic but with a normal blood pressure. Her labs were signficant for a white count of 12 with a left shift, sodium of 133, and urinalysis revealed pyuria, nitritis, leuk esterase, and bacteria. She was admitted for further management. - CONSULTS | PROCEDURES Consultations: Dr Jocy Arnold - HOSPITAL COURSE Hospital Course: 1) Sepsis secondary to UTI She presented with fever, tachycardia, and leukocytosis, consistent with sepsis. Blood pressure was stable and there was no lactic acidosis or renal dysfunction, but her urinalysis was consistent with infection. She was started on Cefepime IV, and IV Hydration and improved. Blood cultures were neg but ur ine cultures were positive. 2) E coli UTI Her urine culture turned positive quickly for Gram negative rods, and then grew E coli, that was sensitive to Cefepime. After 2 days of iv antibiotics she was transitioned to oral Levaquin 750 mg daily and discharged with a prescription for 5 days of this. 3) Emphysematous cystitis The initial abd/pelvis CT reported this finding. The patient denied any recent instrumentation such as a Langston catheter, during that last treatment in [place] for UTI. She was seen by General Surgery here, to evaluate for a colovesical fistula and that was felt to be negative. The air in the urinary bladder was felt to be possibly from gas-forming bacteria therefore. 4) Abdominal distension (gaseous) Her initial exam of the abdomen was very tympanic. She reported that this was always the size of her large abdomen and she had no abdominal pain. This was treated with Simethicone and she had some improvement. 5) Multiple sclerosis This is a chronic diagnosis for this lady, she has been on interferon in the past. She reported that her symptoms were mostly "numbness from head to toe". She was seen by physical therapy and was able to ambulate independently, without the use of a cane, once her sepsis and infection were treated. 6) Type 2 DM While here, she was on a carb controlled diet and had sliding scale insulin coverage. 7) Hx HTN She was off her blood pressure meds for 2 days due to "soft blood pressure", then they were resumed at the time of discharge. 8) Hx sleep apnea She used her home CPAP device while here. - ALLERGIES Allergies/Adverse Reactions: Allergies Allergy/AdvReac Type Severity Reaction Status Date / Time Sulfa (Sulfonamide Allergy Hives Verified 04/01/19 19:07 Antibiotics) hydrocodone [From Vicodin] AdvReac Mild Anxiety Verified 04/01/19 19:08 - MEDICATIONS Home Medications: Ambulatory Orders Medication Instructions Recorded Confirmed Insulin Glargine [Lantus Solostar] 72 unit SUBQ DAILY 04/01/19 04/03/19 Insulin Lispro [Humalog] 16 unit SUBQ ACHS 04/01/19 04/03/19 metFORMIN [Glucophage] 1,000 mg PO BIDWM 04/01/19 04/03/19 traMADol [Ultram] 50 mg PO Q6H PRN 04/01/19 04/02/19 Apple Cider Vinegar 1,200 mg PO DAILY 04/03/19 04/03/19 Ascorbic Acid 1,000 mg PO DAILY 04/03/19 04/03/19 Aspirin [Aspirin EC] 81 mg PO DAILY 04/03/19 04/03/19 Biotin 5,000 mcg PO DAILY 04/03/19 04/03/19 Cholecalciferol (Vitamin D3) 5,000 units PO DAILY 04/03/19 04/03/19 [Vitamin D3] Cranberry Fruit [Cranberry] 650 mg PO DAILY 04/03/19 04/03/19 Cyanocobalamin (Vitamin B-12) 2,500 mg PO DAILY 04/03/19 04/03/19 [Vitamin B-12] Gabapentin [Neurontin] 300 mg PO BID 04/03/19 04/03/19 Glimepiride [Amaryl] 1 mg PO DAILY 04/03/19 04/03/19 Green Tea [place] Extract [Green Tea 400 mg PO DAILY 04/03/19 04/03/19 Extract] Levofloxacin [Levaquin] 750 mg PO DAILY #5 tablet 04/03/19 Levothyroxine [Synthroid] 25 mcg PO QDAC 04/03/19 04/03/19 Lisinopril [Prinivil] 5 mg PO DAILY 04/03/19 04/03/19 Magnesium Oxide [Magnesium] 400 mg PO DAILY 04/03/19 04/03/19 Metoprolol Succinate [Toprol Xl] 100 mg PO DAILY 04/03/19 04/03/19 Mirabegron [Myrbetriq] 25 mg PO DAILY 04/03/19 04/03/19 Omeprazole 20 mg PO BID 04/03/19 04/03/19 Oxybutynin Chloride 5 mg PO BID 04/03/19 04/03/19 Pravastatin [Pravachol] 40 mg PO QPM 04/03/19 04/03/19 Vitamin E(Dl-Alpha Tocopherol) 180 mg PO DAILY 04/03/19 04/03/19 [Alpha Tocopherol] - PHYSICAL EXAM AT DISCHARGE General Appearance: positive: No acute distress, Alert Eyes Bilateral: positive: Normal inspection ENT: positive: ENT inspection nml, No signs of dehydration Neck: positive: Nml inspection, Thyroid nml, No JVD Respiratory: positive: No respiratory distress, Breath sounds nml Cardiovascular: positive: Regular rate & rhythm, No murmur Abdomen: positive: Non-tender, Other (Normal bowel sounds) Skin: positive: Color nml Extremities: positive: No pedal edema Neurologic/Psychiatric: positive: Other (Generalized mild weakness and numbness) - LABS Result Diagrams: 04/03/19 05:10 04/03/19 05:10 - DIAGNOSTIC IMAGING Diagnostic Imaging Results: Final report reviewed - SEPSIS Current Stage of Sepsis: Sepsis Possible source of Sepsis: Genitourinary Sepsis Criteria: Recorded Temperature greater than 38.3C or Less than 36C, Recorded Heart Rate greater than 90 bpm, WBC count greater than 12,000 or less than 4000 - FOLLOW UP Follow Up: Since she is visiting here from [place], she was advised to see her PCP when she gets back to [place]. While here she was advised to come to the ER if she has any new or worsening symptoms. - TIME SPENT Time Spent in Discharge (Minutes): 60
[2019-04-03] MEDS ORDERED: levoFLOXacin 250 MG TABLET PO SCH (16:00)
[2019-04-03 20:16] VITALS: BP 143/82
[2019-04-03] MEDS ORDERED: PRAVASTATIN 40 MG TABLET PO SCH (21:00)
[2019-04-04] MEDS ORDERED: LEVOTHYROXINE 25 MCG TABLET PO SCH (07:00)
== END 2019-04-03 19:55 | disposition home or self-care (01) | DRG 872 ==
LOC: ED 18:50 → MS2 20:48
PROVIDERS: ADMIT Internal Medicine; ATTEND Internal Medicine
DX: A41.9 Sepsis, unspecified organism (principal); A41.51 Sepsis due to Escherichia coli [E. coli]; E87.1 Hypo-osmolality and hyponatremia; N30.80 Other cystitis without hematuria; G35 Multiple sclerosis; E11.9 Type 2 diabetes mellitus without complications; I10 Essential (primary) hypertension; G47.33 Obstructive sleep apnea (adult) (pediatric); R51 Headache; R14.0 Abdominal distension (gaseous); E86.1 Hypovolemia; Z79.4 Long term (current) use of insulin; Z79.899 Other long term (current) drug therapy; Z87.442 Personal history of urinary calculi
CPT/HCPCS: 36415; 74176; 80048; 80053; 81001; 83605; 83690; 83735; 84100; 85025; 87040; 87077; 87086; 87181; 96374; 97116; 97161; 99284; 99285; A9270; J1580; J1815; J7120; 81003; 83036

== ENCOUNTER 2019-10-12 12:33 | Emergency (ER) | payer MEDICARE, OTHER ==
[2019-10-12 15:02] LABS: BILIRUBIN,URINE NEGATIVE (NEGATIVE); GLUCOSE, URINE (UA) NEGATIVE (NEGATIVE); KETONES,URINE (UA) NEGATIVE (NEGATIVE); LEUKOCYTE ESTERASE, URINE NEGATIVE (NEGATIVE); NITRITE,URINE NEGATIVE (NEGATIVE); OCCULT BLOOD,URINE NEGATIVE (NEGATIVE); PH,URINE 5.5 PH (5.0-7.5); PROTEIN,URINE NEGATIVE (NEGATIVE); UROBILINOGEN,URINE 0.2 (NORMAL) E.U./dL (NORMAL)
[2019-10-12 15:13] LABS: CLARITY,URINE CLEAR (CLEAR)
--- NOTE | 2019-10-12 15:19 | ED Physician Documentation ---
PD HPI ABD PAIN - Stated complaint Stated Complaint: FEMALE - Chief complaint Chief Complaint: UTI - History obtained from History obtained from: Patient (64-year-old female, is visiting her daughter who lives in [place], patient resides in [facility] she comes in today with chief complaint of possible UTI symptoms. she was seen by her PCP approximately 15 days ago for UTI & was prescribed Cipro for 10 days which she completed the course of antibiotic about 5 to 10 days ago, she thinks that her symptoms are back, she is also having some flank pain but she has chronic back pain issues.she denies fevers chills nausea or vomiting, foul smelling urine, hematuria. she notes that her urine has been cloudy since prior to being on the Cipro and it has remained cloundy since being off it.) Review of Systems Constitutional: reports: Reviewed and negative Throat: reports: Reviewed and negative Respiratory: reports: Reviewed and negative GI: reports: Reviewed and negative : reports: Other (cloudy urine) Musculoskeletal: reports: Other (PMHX of MS) Neurologic: reports: Reviewed and negative PD PAST MEDICAL HISTORY - Past Medical History Cardiovascular: Hypertension Respiratory: Sleep apnea, CPAP use Neuro: Multiple sclerosis Endocrine/Autoimmune: Type 2 diabetes GI: None : Kidney stones Psych: None Musculoskeletal: Fatigue, Chronic back pain Derm: None - Past Surgical History 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 - Present Medications Home Medications: Ambulatory Orders Medication Instructions Recorded Confirmed Insulin Glargine [Lantus Solostar] 72 unit SUBQ DAILY 04/01/19 04/03/19 Insulin Lispro [Humalog] 16 unit SUBQ ACHS 04/01/19 04/03/19 metFORMIN [Glucophage] 1,000 mg PO BIDWM 04/01/19 04/03/19 traMADol [Ultram] 50 mg PO Q6H PRN 04/01/19 04/02/19 Apple Cider Vinegar 1,200 mg PO DAILY 04/03/19 04/03/19 Ascorbic Acid 1,000 mg PO DAILY 04/03/19 04/03/19 Aspirin [Aspirin EC] 81 mg PO DAILY 04/03/19 04/03/19 Biotin 5,000 mcg PO DAILY 04/03/19 04/03/19 Cholecalciferol (Vitamin D3) 5,000 units PO DAILY 04/03/19 04/03/19 [Vitamin D3] Cranberry Fruit [Cranberry] 650 mg PO DAILY 04/03/19 04/03/19 Cyanocobalamin (Vitamin B-12) 2,500 mg PO DAILY 04/03/19 04/03/19 [Vitamin B-12] Gabapentin [Neurontin] 300 mg PO BID 04/03/19 04/03/19 Glimepiride [Amaryl] 1 mg PO DAILY 04/03/19 04/03/19 Green Tea [place] Extract [Green Tea 400 mg PO DAILY 04/03/19 04/03/19 Extract] Levofloxacin [Levaquin] 750 mg PO DAILY #5 tablet 04/03/19 Levothyroxine [Synthroid] 25 mcg PO QDAC 04/03/19 04/03/19 Lisinopril [Prinivil] 5 mg PO DAILY 04/03/19 04/03/19 Magnesium Oxide [Magnesium] 400 mg PO DAILY 04/03/19 04/03/19 Metoprolol Succinate [Toprol Xl] 100 mg PO DAILY 04/03/19 04/03/19 Mirabegron [Myrbetriq] 25 mg PO DAILY 04/03/19 04/03/19 Omeprazole 20 mg PO BID 04/03/19 04/03/19 Oxybutynin Chloride 5 mg PO BID 04/03/19 04/03/19 Pravastatin [Pravachol] 40 mg PO QPM 04/03/19 04/03/19 Vitamin E(Dl-Alpha Tocopherol) 180 mg PO DAILY 04/03/19 04/03/19 [Alpha Tocopherol] - Allergies Allergies/Adverse Reactions: Allergies Allergy/AdvReac Type Severity Reaction Status Date / Time Penicillins Allergy Rash Verified 10/12/19 12:46 Sulfa (Sulfonamide Allergy Hives Verified 10/12/19 12:46 Antibiotics) hydrocodone [From Vicodin] AdvReac Mild Anxiety Verified 10/12/19 12:46 - Social History Does the pt smoke?: No Smoking Status: Never smoker Does the pt drink ETOH?: No Does the pt have substance abuse?: No - Immunizations Immunizations are current?: Yes - POLST Patient has POLST: No POLST Status: Full Code PD ED PE NORMAL - General General: Alert and oriented X 3, No acute distress, Well developed/nourished - Cardiac Cardiac: RRR - Respiratory Respiratory: Clear bilaterally - Abdomen Abdomen: Normal bowel sounds, Soft, Non tender, Non distended - Psych Psych: Normal mood, Normal affect PD ED PE EXPANDED - General General: No acute distress, Well developed/nourished - Abdomen Abdomen: Normal Bowel sounds - Back Back: No: CVA TTP right, CVA TTP left Results - Vitals Vitals: Vital Signs - 24 hr 10/12/19 10/12/19 10/12/19 12:46 14:42 16:10 Temperature 37 C 36.6 C 36.7 C Heart Rate 87 85 82 Respiratory 18 16 16 Rate Blood Pressure 155/74 H 142/74 H 162/84 H O2 Saturation 97 98 98 Oxygen O2 Source [With Activity] Room air O2 Source Room air - Labs Labs: Laboratory Tests 10/12/19 12:42 Urine Color YELLOW Urine Clarity CLEAR Urine pH 5.5 Ur Specific [place] 1.025 Urine Protein NEGATIVE Urine Glucose (UA) NEGATIVE Urine Ketones NEGATIVE Urine Occult Blood NEGATIVE Urine Nitrite NEGATIVE Urine Bilirubin NEGATIVE Urine Urobilinogen 0.2 (NORMAL) Ur Leukocyte Esterase NEGATIVE Ur Microscopic Review NOT INDICATED Urine Culture Comments NOT INDICATED PD MEDICAL DECISION MAKING - ED course Complexity details: reviewed old records, reviewed results, considered differential, d/w patient Departure - Departure Disposition: Home, Self Care Condition: Good Instructions: Urinary Tract Infecs Women Comments: Patient is encouraged to continue to monitor her urine output noting the color of her urine and the odor and then to monitor her temperature as well should she develop odiferous urine, note blood in her urine or fever she is to return to the ER for further evaluation otherwise she is to follow-up with her PCP in 1 week when she returns back to her home in [facility]. Patient verbalized understanding and is agreement with this plan. Discharge Date/Time: 10/12/19 16:11
[2019-10-12 16:12] VITALS: BP 162/84
== END 2019-10-12 16:11 | disposition home or self-care (01) ==
LOC: ED 12:33
DX: R30.0 Dysuria (principal); G35 Multiple sclerosis; I10 Essential (primary) hypertension; E11.9 Type 2 diabetes mellitus without complications; Z79.4 Long term (current) use of insulin; Z79.82 Long term (current) use of aspirin
CPT/HCPCS: 81001; 81003; 87086; 99283; 99284